=== PATIENT | male | born 1995 | race Caucasian/White ===

== ENCOUNTER 2017-09-13 00:16 | Emergency (ER) | payer BC, OTHER ==
[~2017-09-13 00:16] MED LIST: HYDR-3326 PO
--- NOTE | 2017-09-13 00:20 | NUR ---
CALLED FOR PT NO ANS LWBT
== END 2017-09-13 00:30 | disposition left against medical advice (07) ==
LOC: ER 00:18
DX: Z53.21 Procedure and treatment not carried out due to patient leaving prior to being seen by health care provider (principal)

== ENCOUNTER 2017-09-27 17:56 | Emergency (ER) | payer BC, OTHER ==
[~2017-09-27] VITALS: Ht 180.3 cm; Wt 79.4 kg
[2017-09-27] MEDS ORDERED: RITALIN (18:25)
[2017-09-27] MEDS ORDERED: CONCERTA (18:25)
[2017-09-27] MEDS ORDERED: EFFEXOR (18:25)
[2017-09-27] MEDS ORDERED: ONDANSETRON ODT 4 MG TAB.RAPDIS ONE (18:26)
[2017-09-27] MEDS: ONDANSETRON ODT 4 MG TAB.RAPDIS SL ONE (18:29)
[2017-09-27 18:54] LABS: BASOPHILS % (AUTO) 0.3 % (0.0-2.0); EOSINOPHILS % (AUTO) 0.3 % (0.0-7.0); HEMATOCRIT 40.6 % (36.7-47.1); HEMOGLOBIN 14.2 g/dL (12.5-16.3); LYMPHOCYTES # (AUTO) 1.7 K/uL (20.0-40.0); LYMPHOCYTES % (AUTO) 26.3 % (20.5-51.5); MEAN CORPUSCULAR HEMOGLOBIN 32.2 uug (23.8-33.4); MEAN CORPUSCULAR HGB CONC 35 g/dL (32.5-36.3); MEAN CORPUSCULAR VOLUME 92.4 fL (73.0-96.2); MONOCYTES # (AUTO) 0.4 K/uL (2.0-10.0); MONOCYTES % (AUTO) 6.7 % (0.0-11.0); NEUTROPHILS # (AUTO) 4.4 K/uL (1.8-8.9); NEUTROPHILS % (AUTO) 66.4 % (38.5-71.5); PLATELET COUNT (AUTO) 319 K/uL (152-348); RED BLOOD CELL COUNT(AUTO) 4.39 MIL/uL (4.06-5.63); WHITE BLOOD COUNT (AUTO) 6.6 K/uL (3.6-10.2)
[2017-09-27] MEDS ORDERED: predniSONE 50 MG TABLET ONE (19:05)
[2017-09-27 19:07] LABS: BILIRUBIN,TOTAL 2.4 mg/dL (0.2-1.0); POTASSIUM 3.4 mmol/L (3.5-5.1); TOTAL PROTEIN, SERUM 8.5 g/dL (6.4-8.2)
[2017-09-27] MEDS: predniSONE 50 MG TABLET PO ONE (19:08)
--- NOTE | 2017-09-27 19:33 | NUR ---
Patient discharged to home in stable conditon WITH FRIEND TAKING PATIENT. Written and verbal after care instructions given. Patient verbalizes understanding of instructions.
[2017-09-27 19:35] VITALS: BP 140/90
== END 2017-09-27 19:36 | disposition home or self-care (01) ==
LOC: ER 17:56
DX: R05 Cough (principal); Z87.891 Personal history of nicotine dependence; Z79.899 Other long term (current) drug therapy
CPT/HCPCS: 36415; 71045; 80053; 83690; 85025; 99285; A4663; J7512; Q0162

== ENCOUNTER 2021-02-05 23:26 | Emergency (ER) | payer BC, OTHER ==
[~2021-02-05] VITALS: Ht 180.3 cm; Wt 87.5 kg
[~2021-02-05 23:26] MED LIST changes: +CONCERTA; +EFFEXOR; -HYDR-3326 PO; +RITALIN
[2021-02-06 01:11] LABS: HEMATOCRIT 41.2 % (36.7-47.1); MEAN CORPUSCULAR HEMOGLOBIN 31.9 uug (23.8-33.4); MEAN CORPUSCULAR VOLUME 94.1 fL (73.0-96.2); PLATELET COUNT (AUTO) 310 K/uL (152-348)
[2021-02-06] MEDS ORDERED: FLUT16SP16 NS (01:13)
--- NOTE | 2021-02-06 01:24 | NUR ---
Patient discharged to home in stable condition with taking patienbt home. Written and verbal after care instructions given. Patient verbalizes understanding of instructions. Stressed follow up or return to ER for worsening s/s.
[2021-02-06 01:25] VITALS: BP 130/80
== END 2021-02-06 01:26 | disposition home or self-care (01) ==
LOC: ER 23:32
DX: J32.9 Chronic sinusitis, unspecified (principal); F90.9 Attention-deficit hyperactivity disorder, unspecified type; F41.9 Anxiety disorder, unspecified; F32.9 Major depressive disorder, single episode, unspecified; Z79.899 Other long term (current) drug therapy
CPT/HCPCS: 36415; 85025; 86403; 87070; 87806

== ENCOUNTER 2021-11-18 16:38 | Emergency (ER) | payer BC, OTHER ==
[~2021-11-18] VITALS: Ht 180.3 cm; Wt 82.6 kg
[~2021-11-18 16:38] MED LIST changes: +FLUT16SP16 NS
--- NOTE | 2021-11-18 16:58 | NUR ---
[email or web address], medical screening exam in progress
[2021-11-18] MEDS ORDERED: ONDANSETRON 4 MG/2 ML VIAL ONE (16:59)
[2021-11-18] MEDS ORDERED: KETOROLAC TROMETHAMINE 15 MG INJ ONE (17:00)
[2021-11-18] MEDS ORDERED: DEXAMETHASONE SOD PHOSPHATE 4 MG INJ IV ONE (17:00)
[2021-11-18] MEDS ORDERED: KETOROLAC TROMETHAMINE 15 MG INJ IVP ONE (17:00)
[2021-11-18] MEDS ORDERED: IV NORMAL SALINE 1000 ML BAG IV ONE (17:00)
[2021-11-18] MEDS ORDERED: ONDANSETRON 4 MG/2 ML VIAL IV ONE (17:00)
[2021-11-18] MEDS ORDERED: DEXAMETHASONE SOD PHOSPHATE 10 MG INJ ONE (17:10)
[2021-11-18 17:12] LABS: HEMATOCRIT 37.4 % (36.7-47.1); MEAN CORPUSCULAR HEMOGLOBIN 32.5 uug (23.8-33.4); MEAN CORPUSCULAR VOLUME 93.6 fL (73.0-96.2); PLATELET COUNT (AUTO) 257 K/uL (152-348)
[2021-11-18] MEDS ORDERED: AZIT250T13 PO (17:54)
[2021-11-18] MEDS ORDERED: ONDA4TAB5 PO (17:54)
[2021-11-18] MEDS ORDERED: IBUP-1955 PO (17:54)
[2021-11-18] MEDS ORDERED: AZITHROMYCIN 250 MG TABLET ONE ×2 (17:57→17:58)
[2021-11-18] MEDS ORDERED: AZITHROMYCIN 250 MG TABLET PO ONE (18:00)
--- NOTE | 2021-11-18 18:03 | NUR ---
IV removed. Catheter intact and site benign. Pressure and 4x4 gauze applied to site. No bleeding noted. Patient discharged to home in stable condition. Written and verbal after care instructions given to patient. Patient verbalized understanding and compliance of instructions. Stressed follow up with primary doctor or return to ER for worsening s/s.
[2021-11-18 18:07] VITALS: BP 121/86
[2021-11-19] MEDS ORDERED: AZIT250T13 PO (08:59)
[2021-11-19] MEDS ORDERED: ONDA4TAB5 PO (08:59)
[2021-11-19] MEDS ORDERED: IBUP-1955 PO (08:59)
== END 2021-11-18 18:07 | disposition home or self-care (01) ==
LOC: ER 16:41
DX: J02.9 Acute pharyngitis, unspecified (principal); R50.9 Fever, unspecified; R11.2 Nausea with vomiting, unspecified; Z20.822 Contact with and (suspected) exposure to COVID-19; D72.829 Elevated white blood cell count, unspecified; F17.210 Nicotine dependence, cigarettes, uncomplicated; F90.9 Attention-deficit hyperactivity disorder, unspecified type; F32.A Depression, unspecified; Z79.899 Other long term (current) drug therapy; R03.0 Elevated blood-pressure reading, without diagnosis of hypertension
CPT/HCPCS: 36415; 71045; 80048; 85025; 86403; 87070; 87400; 87426; 96361; 96374; 96375; 99284; J1100; J1885; J2405; A4663; J7040; Q0144

== ENCOUNTER 2021-11-21 19:35 | Emergency (ER) | payer BC, OTHER ==
[~2021-11-21] VITALS: Ht 180.3 cm; Wt 84.4 kg
[~2021-11-21 19:35] MED LIST changes: +AZIT250T13 PO; +IBUP-1955 PO; +ONDA4TAB5 PO
--- NOTE | 2021-11-21 19:41 | NUR ---
BIB mother c/o L ear pain. To room 2B.
--- NOTE | 2021-11-21 20:15 | NUR ---
Seen and evaluated by Dr. Strong.
[2021-11-21] MEDS ORDERED: NEOM10DR11 LEFT EAR (20:30)
[2021-11-21] MEDS ORDERED: OXYC-128 PO (20:30)
[2021-11-21] MEDS ORDERED: AMOX-430 PO (20:30)
--- NOTE | 2021-11-21 20:41 | NUR ---
Patient discharged to home in stable condition. Written and verbal after care instructions given. Patient verbalizes understanding of instructions. Stressed follow up or return to ER for worsening s/s. pt ambulated with steady gait. Denies pain. no SOB. no chest pain. AOx4.
[2021-11-21 20:42] VITALS: BP 118/75
== END 2021-11-21 20:43 | disposition home or self-care (01) ==
LOC: ER 19:38
DX: H66.92 Otitis media, unspecified, left ear (principal); H72.92 Unspecified perforation of tympanic membrane, left ear; F17.200 Nicotine dependence, unspecified, uncomplicated
CPT/HCPCS: A4663